=== PATIENT | male | born 1970 | race Caucasian/White ===

== ENCOUNTER → 2018-06-27 | Outpatient (CLI) | payer OTHER, MEDICAID ==
[~2018-06-27] MED LIST: BACLOFEN20 MG PO; BYDUREON2 MG SQ; JANUMET XR 1001 EACH PO; MELATONIN5 M1 PO; MOBIC7.5 M1 PO; NAPROSYN500 MG PO; NEURONTIN 300300 M1 PO; NORCO 5-325 TA1 EACH PO; PERCOCET 5-3251 EACH PO; ROBAXIN 750 MG750 M1 PO; SINGULAIR 10 MG10 M1 PO; TRAZODONE HCL100 MG PO; VITAMIN B COMP1 EACH PO; ZANTAC 150MG T150 M1 PO; ZESTRIL10 MG PO; ZOCOR 20 MG TAB20 M1 PO; ZYRTEC10 M2 PO
[2018-06-27 08:01] LABS: POTASSIUM 3.7 mmol/L (3.5-5.1)
== END ==
LOC: M.LAB 04:34
PROVIDERS: Anesthesiology
DX: Z01.812 Encounter for preprocedural laboratory examination (principal); E11.9 Type 2 diabetes mellitus without complications; I10 Essential (primary) hypertension; E78.00 Pure hypercholesterolemia, unspecified; M19.90 Unspecified osteoarthritis, unspecified site